=== PATIENT | female | born 1955 | race Caucasian/White ===

== ENCOUNTER → 2018-04-09 | Outpatient (CLI) | payer BC ==
--- NOTE | 2018-04-10 18:30 | Diagnostic Imaging Report ---
EXAMINATION: Digital mammogram bilateral screening with 3D tomosynthesis and computer-aided detection (CAD) system. INDICATION: Screening. COMPARISON: There are no prior studies available for comparison. At this time, there are no current complaints. FINDINGS: The breasts are predominantly fatty. In the mid portion of the left breast on the craniocaudad view, there is a small asymmetric density. There is no corresponding abnormality identified with certainty on the MLO view, although there may be a small similar area of increased density in the superior aspect of the breast. This density does not entirely resolve on the tomographic images. I would recommend that a compression view of this area be obtained in the MLO and CC projections for further study. A true lateral view should also be obtained. If this density persists, then ultrasound may be necessary. The right breast is unremarkable. IMPRESSION: Additional mammographic views of the left breast would be recommended for further study. Ultrasound may also be necessary. ACR BI-RADS Category 0: Incomplete. (Needs additional imaging evaluation). Result letter will be mailed to the patient. Note: At least 10% of breast cancer is not imaged by mammography. Dictated by: Dictated on workstation # [id number]
== END ==
LOC: RAD 09:39
PROVIDERS: ATTEND Nurse Practitioner Family
DX: Z12.31 Encounter for screening mammogram for malignant neoplasm of breast (principal)
CPT/HCPCS: 77067

== ENCOUNTER → 2018-05-03 | Outpatient (CLI) | payer BC ==
--- NOTE | 2018-05-03 19:37 | Diagnostic Imaging Report ---
INDICATION: Left breast density. Patient presents for additional views. COMPARISON: Correlation is made with recent screening study from 04/09/2018. TECHNIQUE: Unilateral left 2D and 3D diagnostic mammography was performed including spot compression CC and MLO as well as rolled CC and conventional 90 degree lateral views. The current study was also evaluated with a Computer Aided Detection (CAD) system. FINDINGS: The area of density noted in the central left breast, best seen on the CC view, appears to resolve with additional views. This most likely represented superimposed tissue. No mass or suspicious calcifications are seen. IMPRESSION: Additional views fail to demonstrate a discrete mass. The patient may return to routine annual screening mammography. ACR BI-RADS Category 1: Negative. Result letter will be mailed to the patient. Note: At least 10% of breast cancer is not imaged by mammography. Dictated by: Dictated on workstation # [id number]
== END ==
LOC: RAD 10:14
PROVIDERS: ATTEND Family Medicine
DX: R92.2 Inconclusive mammogram (principal)